=== PATIENT | male | born 1975 | race African-American/Black ===

== ENCOUNTER 2019-02-14 06:40 | Inpatient (IN) | payer OTHER ==
[~2019-02-14] VITALS: Ht 180.3 cm; Wt 71.7 kg
--- NOTE | 2019-02-14 06:53 | NUR ---
PT PRESENTED TO ED FOR PERIUMBILICAL AND BMQ ABDOMINAL PAIN WITH DIARRHEA X 6 DAYS. PT REPORTS NAUSEA, VOMITING, AND FEVER "A FEW DAYS AGO" BUT DENIES ANY CURRENT NAUSEA, VOMITING, OR FEVER. PT A&0X4, SPEAKING FULL CLEAR SENTENCES. PT BREATHING EVEN AND UNLABORED. FAMILY AT BEDSIDE. PT AWAITING MSE. PT PROVIDED WITH URINE SPECIMEN CUP AND ASKED TO PROVIDE URINE SAMPLE. PT STATES UNABLE TO PROVIDE URINE AT THIS TIME. WILL CONTINUE TO MONITOR.
--- NOTE | 2019-02-14 07:02 | NUR ---
REPORT GIVEN TO FAUSTO PETE AND SHOSHANA RN. FAUSTO AND SHOSHANA TO ASSUME CARE OF PT AT THIS TIME. MD CHRISTY AT BEDSIDE FOR MSE.
--- NOTE | 2019-02-14 07:44 | NUR ---
PT BROUGHT IN PERIUMBILICAL PAIN BILATERAL RADIATING TO RLQ 10 OUT OF 10 PAIN. PUT ON PET CARE WORKER, RHYTHM SINUS TACHY 116 RATE. PT PUT ON PULSE OX, O2 SAT 99. PT PUT ON O2 2L NC PER MD ORDER. IV ESTABLISHED IN L FA. PT MEDICATED IN COMFORT POSITION, BED LOW, CALL LIGHT IN REACH WITH FAMILY AT BEDSIDE.
--- NOTE | 2019-02-14 07:45 | NUR ---
PT LEFT ON GURNEY TO CT SCAN
[2019-02-14 07:49] LABS: PLATELET COUNT 285 x10^3mcL (130-400); RED CELL DISTRIBUTION WIDTH 14.1 % (11.5-14.5)
[2019-02-14 07:50] LABS: BASOPHIL % 0 % (0-2)
--- NOTE | 2019-02-14 07:54 | NUR ---
PT CAME BACK FROM CT SCAN. ATTACHED BACK TO MONITOR, O2 2L NC, COMFORT POSITION BED LOW CALL LIGHT IN REACH. FAMILY AT BEDSIDE.
[2019-02-14 08:08] LABS: CALCIUM 8.3 mg/dL (8.5-10.1); CARBON DIOXIDE 21.9 mmol/L (21-32); CHLORIDE SERUM 97 mmol/L (98-107); CREATININE SERUM 2.4 mg/dL (0.7-1.3); GFR1 31 mL/min; GLUCOSE SERUM 119 mg/dL (74-106); POTASSIUM SERUM 3.8 mmol/L (3.5-5.1); SODIUM SERUM 131 mmol/L (136-145)
--- NOTE | 2019-02-14 08:09 | NUR ---
PLEASE ENTER FULL NAMES OF STUDENT/RN Documentation completed by (Student Nurse):FAUSTO ANDERS Documentation reviewed by (Registered Nurse): RETA
[2019-02-14 08:12] LABS: ALKALINE PHOSPHATASE 75 U/L (46-116); ALT/SGPT 36 U/L (16-63); AST/SGOT 29 U/L (15-37); LIPASE 582 IU/L (73-393); TOTAL PROTEIN, SERUM 7.6 g/dL (6.4-8.2)
[2019-02-14 08:13] LABS: ALBUMIN 2.4 g/dL (3.4-5.0)
--- NOTE | 2019-02-14 08:15 | NUR ---
PT STATED HE WANTED TO TAKE O2 NC OFF, DIDNT WANT IT ON ANYMORE.
--- NOTE | 2019-02-14 08:28 | NUR ---
PT AMBULATED TO RESTROOM FOR URINE SAMPLE. STEADY GAIT. PT NOW LAYING AND RESTING IN BED SIDE RAILS UP. NO ACUTE DISTRESS. ASSESSED RESPIRATION, 100% BREATHING E/U.
--- NOTE | 2019-02-14 10:30 | NUR ---
C/O ABDOMIONL PAIN MEDICATED WITH MS,
--- NOTE | 2019-02-14 11:13 | NUR ---
ADMITTED TO M/S REMAINS HAVING ABDOMINAL PAIN BUT LESS THAN BEFORE,ABDOMEN TENDER,
--- NOTE | 2019-02-14 11:17 | NUR ---
NEW ADMISSION FROM ER. ADMITTED WITH ABDOMINAL PAIN, NAUSEA, VOMTING AND DIARRHEA FOR 5 DAYS. PATIENT IS ALERT AND ORIENTED. NO C/O NAUSEA AT THIS TIME BUT REPROTS THAT ABDOMINAL PAIN IS STIL 10/10 DESPITE ALL MEDICATION ADMINISTERED IN ER.
[2019-02-14 12:41] VITALS: BP 92/58
--- NOTE | 2019-02-14 12:58 | NUR ---
AT 1118 - RECEIVED PATIENT FROM ER NURSE. SETTLED IN ROOM, ORIENTED TO SURROUNDINGS. HISTORY OBTAINED FROM PATIENT. AT 1125 - SEEN BY RAFAT SCOTT. PATIENT FOR MRI OF ABDOMEN. ALSO TO BE SEEN BY SURGEON, DR GATES. IV INFUSION OF D5NS COMMENCED AT 80 ML/HR AT 1200 - MRI CHECK LIST COMPLETED BY DELFINA OSPINA. AT 1245 - PATIENT TAKEN TO RADIOLOGY FOR MRI.
--- NOTE | 2019-02-14 13:17 | NUR ---
BACK IN ROOM FOLLOWING MRI. IV INFUSION OF D5NS RESUMED AT 80 ML/HR. PATIENT DECLINED PAIN MEDICATION AT THIS TIME.
--- NOTE | 2019-02-14 15:09 | NUR ---
HAS BEEN STARTED ON IV ZOSYN. FIRST DOSE ADMINISTERED. RESTING QUIETLY.
--- NOTE | 2019-02-14 15:52 | NUR ---
RECEIVED CALL FROM DR OLIVARES. READ CT AND MRI REPORTS TO DOCTOR.
[2019-02-14 17:01] VITALS: BP 103/67
--- NOTE | 2019-02-14 18:20 | NUR ---
AT 1715 - SEEN BY DR JOHNSTON. NEW ORDERS RECEIVED. PATIENT FOR ABDOMINAL ULTRASOUND. HAS BEEN AMBULATING TO BATHROOM FOR TOILET NEEDS. PATIENT MADE AWARE OF NEED FOR URINE SPECIMEN COLLECTION. AT 1800 - REMAINS NPO. IV INFUSING D5NS AT 80 ML/HR. NO NAUSEA, VOMITING OR DIARRHEA SINCE ADMISSION. NOT C/O PAIN AT THIS TIME. VISITORS AT BEDSIDE. WILL ENDORSE CARE TO NIGHT NURSE.
--- NOTE | 2019-02-14 20:00 | NUR ---
RECEIVED PT IN BED, ABD US IN PROGRESS. PT IS AA0X4. SPEECH CLEAR. ABLE TO MAKE NEEDS KNOWN. NO TELE NEEDED. PT IS NPO. BS ACTIVE IN ALL FOUR QUADS. MILD ABD PAIN NOTED. PT ABLE TO AMBULATE TO BR, URINAL AT BEDSIDE. IVF INFUSING WELL TO LAC. SHIFT ASSESSMENT COMPLETED. CALL LIGHT WITHIN REACH. BED IS IN LOWEST POSITION. WILL CONTINUE TO MONITOR CLOSELY.
--- NOTE | 2019-02-14 21:00 | NUR ---
IVF CHANGED TO D5 1/2 NS AT 100ML/HR. PT HAS LOW GRADE TEMP OF 100.2, TYLENOL GIVEN.
[2019-02-14 21:09] VITALS: BP 99/55
--- NOTE | 2019-02-14 22:30 | NUR ---
TEMP 99.6. RESTING IN BED. IVF ONGOING. CALL LIGHT WITHIN REACH. WILL CONTINUE TO MONITOR CLOSELY.
[2019-02-15 05:42] VITALS: BP 90/60
--- NOTE | 2019-02-15 06:35 | NUR ---
PT SLEPT ON AND OFF THROUGH OUT THE NIGHT. NIGHT SWEATS NOTED. GOWN CHANGED. URINE SPECIMEN COLLECTED AND SENT TO LAB. PT C/O PAIN TO ABD, NOWEVER REFUSED ANY PAIN MEDICATION. PT STATES HE HAD TWO EPISODES OF DIARRHEA. IVF ONGOING. CALL LIGHT WITHIN REACH. BED IS IN LOWEST POSITION. WILL ENDORSE TO INCOMING SHIFT.
[2019-02-15 07:06] LABS: UA SPECIFIC GRAVITY <=1.005 (1.005-1.035); microscopic required? YES; urine erythrocyte 1+ (NEGATIVE)
[2019-02-15 07:26] LABS: PLATELET COUNT 313 x10^3mcL (130-400); RED CELL DISTRIBUTION WIDTH 14.2 % (11.5-14.5)
--- NOTE | 2019-02-15 07:30 | NUR ---
PATIENT IS A&OX4. MEDSUR PATIENT, DENIES CHEST PAIN. PERIPHERAL PULSES PALPABLE W/ NO SIGNS OF EDEMA. LUNG SOUNDS CTA BILATERALLY. ON RA. HAS DIARRHEA. ABD PAIN PRESENT. VOIDS WELL. ABLE TO AMBULATE INDEPENDENTLY. ABD PAIN PERSENT. COOPERATES WELL.
[2019-02-15 07:57] LABS: CALCIUM 8.1 mg/dL (8.5-10.1); CARBON DIOXIDE 23.6 mmol/L (21-32); POTASSIUM SERUM 4.5 mmol/L (3.5-5.1)
[2019-02-15 08:10] LABS: AMPHETAMINE QUAL UR NONE DETECTED (See below)
[2019-02-15 09:02] VITALS: BP 97/58
[2019-02-15 09:38] LABS: BAND NEUTROPHIL 3 % (0-10); MONOCYTE 2 % (0-7); SEGMENTED NEUTROPHILS 93 % (37-75)
[2019-02-15 09:41] LABS: PLATELET MORPHOLOGY PLATELETS INCREASED; rbc morphology (normal/abnorm) ABNORMAL (NORMAL)
[2019-02-15 17:23] VITALS: BP 99/57
--- NOTE | 2019-02-15 19:30 | NUR ---
PT IS A/O x4. MED SURG. DENIES ANY CHEST PAIN OR PRESSURE. PULSES ARE PRESENT. NO EDEMA NOTED. LUNFS CLEAR IN ALL FEILDS. ON RA, DENIES ANY SOB. EQAUL CHEST RISE AND FALL. NO SIGN OF RESP DISTRESS. BOWEL SOUNDS PRESENT x4. DENIES ANY ABD PAIN OR DISTRESS. DENIES ANY N/V. VOIDS FREELY. SKIN WARM AND INTACT. DENIES ANY PAIN AT THIS TIME. IV ON LAC INTACT AND PATENT. NO SIGN OF INFILTRATION OR IRRITATION. BED IS AT LOWEST SETTING. CALL LIGHT WITHIN REACH, WILL CONTINUE TO MONITOR.
[2019-02-15 21:30] VITALS: BP 102/56
--- NOTE | 2019-02-16 01:59 | NUR ---
PT IS RESTING IN BED. DENIES ANY PAIN OR DISTRESS. SNACKS WERE PROVIDED. BED IN LOWEST SETTING. CALL LIGHT WITHIN REACH. WILL CONTINUE TO MONTIOR.
[2019-02-16 05:33] VITALS: BP 95/58
--- NOTE | 2019-02-16 06:41 | NUR ---
PT IS RESTING IN BED. DENIES ANY PAIN OR DISTRESS. NO ACUTE EVENT OCCURED AT NIGHT. BED IS AT LOWEST SETTING. CALL LIGHT WITHIN REACH. WILL ENDORSE TO AM NURSE.
[2019-02-16 06:59] LABS: PLATELET COUNT 397 x10^3mcL (130-400); RED CELL DISTRIBUTION WIDTH 14.5 % (11.5-14.5)
[2019-02-16 07:08] LABS: BASOPHIL % 0 % (0-2)
[2019-02-16 07:11] LABS: CALCIUM 8.1 mg/dL (8.5-10.1); CARBON DIOXIDE 23.7 mmol/L (21-32); CREATININE SERUM 1.6 mg/dL (0.7-1.3); POTASSIUM SERUM 4.2 mmol/L (3.5-5.1)
--- NOTE | 2019-02-16 07:41 | NUR ---
AWAKE AND ALERT. NO RESP. DISTRESS NOTED. NO C/O PAIN OR DISCOMFORT. PT DENIES N/V AT THIS TIME. VS WNL. IVF WITHN REACH. CALL LIGHT WITHIN REACH. WILL CONTINUE WITH PLAN OF CARE.
--- NOTE | 2019-02-16 13:00 | NUR ---
PT HAD TEMP OF 100.8, COOLING MEASURES INITIATED AND TYLENOL GIVEN PER PRN ORDER.
--- NOTE | 2019-02-16 14:59 | NUR ---
RESTING IN NO DISTRESS TEMP 99.1. COOLING MEASURES IN PLACE.
[2019-02-16 17:01] VITALS: BP 96/57
--- NOTE | 2019-02-16 18:39 | NUR ---
PT TOLERATED WELL WITH MEALS. NO N/V NOR ABD. DISCOMFORT. REMAINS IN NO ACUTE DISTRESS. VS STABLE. IVF INFUSING WELL AND SITE CLEAR. FAMILY AT BEDSIDE. CALL LIGHT WITHIN REACH. WILL BE ENDORSED TO INCOMING SHIFT.
--- NOTE | 2019-02-16 18:40 | NUR ---
NURSING CO-SIGN THE DOCUMENTATION ENTERED BY THE STUDENT NURSE HAS BEEN REVIEWED. REVIEWED/CO-SIGNED BY: Diane Trujillo DOCUMENTATION DONE BY:KHADRA PENN
--- NOTE | 2019-02-16 19:10 | NUR ---
RECEIVED PT FROM PREVIOUS SHIFT NURSE. PT AOX4, DENIES GONZALES/DIZZINESS. MED SURG PT, DENIES CP/PRESSURE. DENIES SOB/DIFFICULTY BREATHING, ON RA. IV TO LAC, INTACT AND PATENT. BED IN LOWEST POSITION. WILL CONTINUE TO MONITOR.
[2019-02-16 19:21] VITALS: BP 93/61
--- NOTE | 2019-02-17 03:35 | NUR ---
PT RESTING IN BED. RR EVEN AND UNLABORED. IN NO ACUTE DISTRESS. CALL LIGHT WITHIN REACH. BED IN LOWEST POSITION. WILL CONTINUE TO MONITOR.
[2019-02-17 05:20] VITALS: BP 94/48
[2019-02-17 06:52] LABS: CALCIUM 7.5 mg/dL (8.5-10.1); CARBON DIOXIDE 23.9 mmol/L (21-32); CREATININE SERUM 1.6 mg/dL (0.7-1.3); POTASSIUM SERUM 3.7 mmol/L (3.5-5.1)
[2019-02-17 07:07] LABS: BASOPHIL % 0.1 % (0-2)
[2019-02-17 07:10] LABS: PLATELET COUNT 475 x10^3mcL (130-400); RED CELL DISTRIBUTION WIDTH 14.7 % (11.5-14.5)
--- NOTE | 2019-02-17 07:28 | NUR ---
PT RECIEVED FROM M[employer]NS[employer]IP ASSESSOR NURSE. PT IN BED IN NO ACUTE DISTRESS. PT IS MED SURGE. RESPIRATIONS EVEN AND UNLABORED. IV TO RIGHT AC IS INTACT AND PATENT RUNNING D5 1/2 NS AT 100 ML/HR. NO SWELLING OR TENDERNESS AT IV SITE. CALL LIGHT WITHIN REACH. WILL CONTINUE TO MONITOR.
[2019-02-17 07:52] VITALS: BP 90/55
[2019-02-17 09:40] VITALS: BP 106/71
--- NOTE | 2019-02-17 09:56 | NUR ---
D/C PT'S IV. CATHETER TIP INTACT.
[2019-02-17 12:52] VITALS: BP 106/71
--- NOTE | 2019-02-17 13:15 | NUR ---
1. Recommend continuing cardiac diet at this time.
--- NOTE | 2019-02-17 13:15 | NUR ---
Initial Nutrition Assessment: 257/A HAROONANEL FREDI IA HR Dx: abd pain PMHx: none PSHx: none Labs: CREAT 1.6H, ALB 2.4L, CA 7.5L, HGB 11.3L, lipase 478H Meds: morphine, Tylenol, zofran Diet: cardiac PO intake since admission: (02/16) dinner 0%, lunch 90%, breakfast 10% Ht: 180.34 cm (71") Wt: 71.6 kg (157#) BMI: 22 kg/m2 Bed scale: unable to access as patient gone for shower IBW: 172# (78 kg) %IBW: 91 UBW: unable to access Age: 43/M Food Allergies: NKFA Skin: intact Jung: 20 Edema: none GI: Last BM: 02/16 Per H&P, Pt is a 43-year old male who has a 1-week history of abdominal pain associated with nausea and vomiting. RD Note (02/17): Patient was not in the room. Per RN Maggie, patient's diet was progressed to regular by GI doctor Caty. Per RN, Patient is tolerating diet well, family brings junk food from outside. Per progress note (02/16), Per Dr. Byrne patient has acute pancreatitis 2/2 dehydration. Per RN, Dr. Byrne mentioned that patient's pancreatitis is resolving. Patient will likely be D/C today per RN. Problem with: N/V/D/C: none per RN Problems with: Chewing: Swallowing: none per RN Current appetite: good per RN Recent wt change: unable to access %wt change: n/a Vitamin/Supplement use: unable to access Special diet at home: unable to access Physical activity: unable to access Nutrition education given: not possible at this time Food-drug interactions: none Education given: n/a Estimated Nutritional Needs Based on current body weight (71.6 kg) Energy: 5936-3171 kcal/day (25-30 kcal/kg for maintenance) Protein: 72-86 g/day (1.0-1.2 g/kg for maintenance) Fluid: 8732-5466 mL/day (1 mL/kcal) Nutrition Diagnosis: 1. Altered nutrition related lab values related to pancreatitis as evidenced by lipase 478H. Intervention 1. Recommend continuing cardiac diet at this time. Monitor/Evaluate Goal: PO intake at least 75% of estimated needs Monitor: PO intake, Labs, GI function F/U in 7 days as low risk 02/24
--- NOTE | 2019-02-17 13:30 | NUR ---
NURSING CO-SIGN THE DOCUMENTATION ENTERED BY THE RN STUDENT NURSE HAS BEEN REVIEWED. REVIEWED/CO-SIGNED BY: Diane Trujillo DOCUMENTATION DONE BY:ANITA GAVIRIA
--- NOTE | 2019-02-17 13:37 | NUR ---
PT DC'D HOME IN NO DISTRESS. AWAKE,ALERT AND ORIENTED, VS STABLE. PT TOLERATED WELL WITH MEALS. NO N/V NOR ABD. PAIN. HL REMOVED AND SITE CLEAR. DC INSTRUCTIONS REVIEWED WITH PT AND FAMILY. NO RX GIVEN. PERSONAL BELONGINGS TAKEN HOME.
== END 2019-02-17 13:35 | disposition home or self-care (01) | DRG 282 ==
LOC: ED 06:40 → MU 08:55
PROVIDERS: Emergency Medicine; Internal Medicine; Internal Medicine Gastroenterology; ADMIT Internal Medicine
DX: K85.90 Acute pancreatitis without necrosis or infection, unspecified (principal); K35.80 Unspecified acute appendicitis; A08.4 Viral intestinal infection, unspecified
CPT/HCPCS: C9113; G0378; J1720; J1885; J2270; J2543; J2765; J7030; J7042; Q0092

== ENCOUNTER 2019-02-20 16:10 | Emergency (ER) | payer OTHER ==
[~2019-02-20] VITALS: Ht 180.3 cm; Wt 75.3 kg
[2019-02-20 16:16] VITALS: Ht 180.3 cm; Wt 75.3 kg
[2019-02-20 18:22] LABS: BASOPHIL % 0.2 % (0-2); RED CELL DISTRIBUTION WIDTH 14.5 % (11.5-14.5)
[2019-02-20 18:30] LABS: PLATELET COUNT 722 x10^3mcL (130-400)
[2019-02-20 18:38] LABS: CALCIUM 8.3 mg/dL (8.5-10.1); CARBON DIOXIDE 29.8 mmol/L (21-32); CREATININE SERUM 1.5 mg/dL (0.7-1.3); POTASSIUM SERUM 3.9 mmol/L (3.5-5.1)
[2019-02-20 18:42] LABS: BILIRUBIN TOTAL 0.5 mg/dL (0.20-1.00); TOTAL PROTEIN, SERUM 7.2 g/dL (6.4-8.2)
[2019-02-20 18:45] LABS: ALBUMIN 2.1 g/dL (3.4-5.0)
[2019-02-20 20:49] VITALS: BP 120/68
== END 2019-02-20 20:49 | disposition home or self-care (01) ==
LOC: ED 16:10
PROVIDERS: Emergency Medicine
DX: R10.13 Epigastric pain (principal); R50.9 Fever, unspecified
CPT/HCPCS: 85060; J2270; J2405; J7030; Q9967